=== PATIENT | female | born 1965 | race Caucasian/White ===

== ENCOUNTER 2021-04-11 15:23 | Emergency (ER) | payer BC, SELFPAY ==
[2021-04-11 16:18] VITALS: BP 145/84; PULSE 84; RESP 16; TEMP 36.8; O2SAT 99
--- NOTE | 2021-04-11 17:11 | ED.URI ---
HPI - URI/Sore Throat General Chief Complaint: Upper Respiratory Infection Stated Complaint: fever/zee/congestion Time Seen by Provider: 04/11/21 17:12 Source: patient Mode of arrival: ambulatory Limitations: no limitations History of Present Illness HPI Narrative: Maya Tsai is a 55 yo female with no PMH who comes to express care with congestion and anxiety because her son was at [facility] on Friday and has been diagnosed with Covid. She said few days ago she had a fever of 100.2, otherwise she has been afebrile she has no nausea vomiting diarrhea, no cough Got 2 doses of Pfizer vaccine Related Data Allergies Allergy/AdvReac Type Severity Reaction Status Date / Time Cephalosporins Allergy Unknown Verified 06/02/17 14:41 codeine Allergy Unknown Verified 06/26/16 09:30 erythromycin base Allergy Unknown Verified 03/19/10 10:15 hydrocodone Allergy Unknown Verified 03/19/10 10:12 Penicillins Allergy Unknown Verified 06/26/16 09:30 sulfanilamide Allergy Unknown Verified 08/20/10 14:30 Review of Systems Review of Systems: CONSTITUTIONAL: Denies fever, chills, sweats. EYES: Denies visual changes, redness, discharge. ENT: Denies rhinorrhea, mild congestion, sore throat, otalgia. CARDIOVASCULAR: Denies chest pain, palpitations, edema. Chest heaviness RESPIRATORY: Denies dyspnea, wheezing, cough GASTROINTESTINAL: Denies abdominal pain, nausea, vomiting, diarrhea. GENITOURINARY: Denies dysuria, hematuria, abnormal discharge SKIN: Denies rash or itching. NEUROLOGIC: Denies numbness, or focal weakness. PSYCHIATRIC: Denies anxiety or depression. [facility] Past Medical History Medical History No acute medical problems Family History Family History Mother Hypertension Family history of elevated blood lipids Grandparent Hypertension, Onset Age: 88 Family history of elevated blood lipids, Onset Age: 88 Cerebrovascular accident, Onset Age: 81 Social History Social History Smoking status: Former smoker Second hand tobacco smoke exposure: Yes Smoking end date: 04/07/92 Alcohol intake: never Comments At time of signature, I agree with nursing past medical, surgical, social and family history. There is no relevant family history pertinent to the presenting complaint. Exam Narrative: GENERAL: This is a well-nourished, well-developed patient, in mild distress. HEAD: normocephalic, atraumatic. EYES:Sclera clear/white. Vision is grossly intact. EARS: External ears normal, . Hearing grossly intact. NOSE: External nose normal without nasal discharge, nares without redness, no rhinorrhea. THROAT: Mucous membranes moist, posterior pharynx mild erythema, no edema no exudate NECK: Neck supple, non-tender CARDIOVASCULAR: Regular rate and rhythm without murmurs, gallops, or rubs. RESPIRATORY: Clear to auscultation. Breath sounds equal bilaterally. No wheezes, rales, or rhonchi. GASTROINTESTINAL: Abdomen soft, non-tender, SKIN: warm, intact with no suspicious lesions or rash, good texture and turgor. NEURO: awake, alert, and oriented to person, place and time. There were no obvious focal neurologic abnormalities. Steady gait EXTREMITIES: Normal range of motion. BACK: Nontender without deformity Course Course Emergency Course: Patient comes with 3 days of upper respiratory symptoms and is concerned because she had contacted her son last week who got Covid and she has had pneumonia in the past and so she worries that these symptoms could be the beginning of her getting ill COVID PCR done Some [place]lyn Flonase and Mucinex Level of Care: Express Care Visit Vital Signs Vital signs: Vital Signs Temperature 98.3 F 04/11/21 16:18 Pulse Rate 84 04/11/21 16:18 Respiratory Rate 16 04/11/21 16:18 Blood Pressure 145/84 H 04/11/21 16:18 Pu
[2021-04-12 14:35] LABS: SARS-CoV-2 RNA PCR Positive
== END 2021-04-11 17:30 | disposition home or self-care (01) ==
PROVIDERS: Emergency Provider Nurse Practitioner; PCP Family Medicine
DX: U07.1 COVID-19 (principal); Z87.891 Personal history of nicotine dependence
CPT/HCPCS: 99213; C9803; G0463; U0003; U0005

== ENCOUNTER 2022-07-05 10:07 | Emergency (ER) | payer BC, SELFPAY ==
[2022-07-05 10:19] VITALS: BP 131/89; PULSE 82; RESP 16; TEMP 36.3; O2SAT 96
[2022-07-05 10:21] VITALS: BP 131/89; PULSE 82; RESP 16; TEMP 36.3; O2SAT 96
--- NOTE | 2022-07-05 10:45 | ED.URI ---
HPI - URI/Sore Throat General Chief Complaint: Upper Respiratory Infection Stated Complaint: cough Time Seen by Provider: 07/05/22 10:45 Source: patient, RN notes reviewed and old records reviewed Mode of arrival: ambulatory Limitations: no limitations History of Present Illness HPI Narrative: 56-year-old female presents to the [facility] with nasal congestion that started on Friday, 2 days ago. Cough started yesterday. Reports shortness of breath yesterday which I had shower has helped. Denies any chest pain or shortness of breath currently Patient states that she starts coughing and feels like she is wheezing and having bronchial spasms. Onset (ago): day(s) (2) Related Data Allergies Allergy/AdvReac Type Severity Reaction Status Date / Time Cephalosporins Allergy Unknown Unknown Verified 07/05/22 10:21 codeine Allergy Unknown Unknown Verified 07/05/22 10:21 erythromycin base Allergy Unknown Unknown Verified 07/05/22 10:21 hydrocodone Allergy Unknown Unknown Verified 07/05/22 10:21 Penicillins Allergy Unknown Unknown Verified 07/05/22 10:21 sulfanilamide Allergy Unknown Unknown Verified 07/05/22 10:21 Review of Systems Review of Systems: All systems reviewed & are unremarkable except as noted in HPI and below Constitutional: Constitutional: Reports no additional constitutional complaints Eyes: Eyes: Reports no additional eye complaints ENT: Reports system reviewed and no additional complaints, except as documented Cardiovascular: Cardiovascular: Reports no additional cardiovascular complaints, Denies chest pain and Denies dyspnea Respiratory: Respiratory: Reports as per HPI, Reports chest congestion, Reports cough and Reports dyspnea Gastrointestinal: Gastrointestinal: Reports no additional gastrointestinal complaints, Denies abdominal pain, Denies nausea and Denies vomiting Musculoskeletal: Musculoskeletal: Reports no additional musculoskeletal complaints Integumentary/Breasts: Skin/Breast: Reports system reviewed and no additional complaints, except as docu Neurologic: Reports system reviewed and no additional complaints, except as documented Psychiatric: Psychiatric: Reports no additional psychiatric complaints Allergic/Immunologic: Allergic/Immunologic: Reports no additional allergic/immunologic complaints PMF Past Medical History Medical History No acute medical problems Family History Family History Mother Hypertension Family history of elevated blood lipids Grandparent Hypertension, Onset Age: 88 Family history of elevated blood lipids, Onset Age: 88 Cerebrovascular accident, Onset Age: 81 Social History Social History Smoking status: Former smoker Second hand tobacco smoke exposure: Yes Smoking end date: 04/07/92 Alcohol intake: never Comments At the time of my signature, I reviewed and agree with the nursing past medical, surgical, social, and family history. There is no relevant family history pertinent to the patient complaint. Exam Const: General: cooperative, healthy appearing, comfortable, no acute distress, well developed, alert and well nourished Nutritional Appearance: well nourished and obese Orientation/consciousness: patient oriented x3 Limitations: no limitations HENMT: Head: normal to inspection Ears: hearing grossly normal bilaterally and external ears normal Face/Nose/Sinus: Normal external nose present, Normal nares present, Normal nasal mucous membranes and turbinates present and normal facial exam Face and sinus: normal facial exam Mouth: Yes Normal oral and palatal mucosa present, Yes lip normal and Yes moist mucous membranes Throat: posterior oropharynx normal, uvula midline and postnasal drainage Eyes: General: appearance normal, both eyes and all related structures Alignment and P
== END 2022-07-05 10:56 | disposition home or self-care (01) ==
PROVIDERS: Emergency Provider Nurse Practitioner; PCP Family Medicine
DX: J06.9 Acute upper respiratory infection, unspecified (principal); R09.82 Postnasal drip; R05.9 Cough, unspecified; Z87.891 Personal history of nicotine dependence
CPT/HCPCS: 99213; G0463

== ENCOUNTER 2023-07-19 13:16 | Emergency (ER) | payer BC, SELFPAY ==
[2023-07-19 13:20] VITALS: BP 143/87; PULSE 88; RESP 17; TEMP 36.3; O2SAT 97
--- NOTE | 2023-07-19 13:40 | ED.URI ---
HPI - URI/Sore Throat General Chief Complaint: Upper Respiratory Infection Stated Complaint: SORE THROAT Time Seen by Provider: 07/19/23 13:42 Source: patient and RN notes reviewed Mode of arrival: ambulatory Limitations: no limitations History of Present Illness HPI Narrative: 57-year-old female presents concern for postnasal drainage, sore throat, cough, hoarse voice, ear fullness. Reports she has been taking ibuprofen. Denies fever, body aches, chills, sweats. MD elicited complaint: cough and sore throat Related Data Allergies Allergy/AdvReac Type Severity Reaction Status Date / Time Cephalosporins Allergy Unknown Unknown Verified 07/19/23 13:41 codeine Allergy Unknown Unknown Verified 07/19/23 13:41 erythromycin base Allergy Unknown Unknown Verified 07/19/23 13:41 hydrocodone Allergy Unknown Unknown Verified 07/19/23 13:41 Penicillins Allergy Unknown Unknown Verified 07/19/23 13:41 sulfanilamide Allergy Unknown Unknown Verified 07/19/23 13:41 Review of Systems Review of Systems: CONSTITUTIONAL: Denies malaise, chills, sweats, or fever. EYES: Denies visual changes, redness, or discharge. ENT: Reports rhinorrhea, congestion, otalgia and sore throat. CARDIOVASCULAR: Denies chest pain, palpitations, or edema. RESPIRATORY: Reports cough. Denies dyspnea. GASTROINTESTINAL: Denies abdominal pain, nausea, vomiting, diarrhea SKIN: Denies rash or itching. MUSCULOSKELETAL: Denies myalgia. NEUROLOGIC: Denies headache. All systems reviewed & are unremarkable except as noted in HPI and below PMFSH Past Medical History Medical History No acute medical problems Family History Family History Mother Hypertension Family history of elevated blood lipids Grandparent Hypertension, Onset Age: 88 Family history of elevated blood lipids, Onset Age: 88 Cerebrovascular accident, Onset Age: 81 Social History Social History Smoking status: Former smoker Second hand tobacco smoke exposure: Yes Smoking end date: 04/07/92 Alcohol intake: never Comments At time of signature, agree with nursing past medical, surgical, social and family history. There is no relevant family history pertinent to the presenting complaint Exam Narrative: GENERAL: Well-appearing, well-nourished, and in no acute distress. HEAD: Normocephalic EYES: PERRLA, conjunctivae clear ENT: Nares clear, turbinates edematous and erythematous, clear discharge. Mucous membranes moist. TM pearly shaikh with dull light reflex bilaterally; no tragal tenderness. Oropharynx not erythematous without lesions. Tonsils not enlarged and without exudate, no drooling, no hoarseness, no trismus, uvula midline. NECK: Supple. No lymphadenopathy CHEST: Clear to auscultation, breath sounds equal. No wheezing, rhonchi, rales, or stridor. No respiratory distress, speaks in full sentences. HEART: Regular rate and rhythm. No murmur heard. SKIN: Warm, dry, no rash. NEURO: Alert and oriented x3. PSYCH: Normal mood and affect Course Course Emergency Course: Patient is aware of diagnosis, understands and agrees to treatment plan. Anticipatory guidance given. Patient agrees to follow-up as directed and is aware of reasons to seek care at the emergency department. Portions of this record may have been created with voice recognition software Level of Care: Express Care Visit Vital Signs Vital signs: Reviewed. MDM - URI/Sore Throat MDM Narrative Medical decision making narrative: Differential diagnosis considered: Issa virus, strep pharyngitis, allergic rhinitis, upper respiratory tract infection, sinusitis, rhinosinusitis, nasopharyngitis. viral pharyngitis, otitis media, otitis externa, pneumonia, bronchitis, viral cough syndrome, viral syndrome, and influenza. Exam findings show no acute concerns or ch
== END 2023-07-19 13:52 | disposition home or self-care (01) ==
PROVIDERS: Emergency Provider Nurse Practitioner; PCP Family Medicine
DX: J06.9 Acute upper respiratory infection, unspecified (principal); Z87.891 Personal history of nicotine dependence
CPT/HCPCS: 87081; 87880; 99213; G0463

== ENCOUNTER 2023-09-26 13:03 | Emergency (ER) | payer BC, SELFPAY ==
--- NOTE | ~2023-09-26 | XR_ITS ---
EXAMINATION: XR foot RT min 3V DATE: 09/26/2023 13:39 INDICATION: Right foot injury. TECHNIQUE: 5 views of right foot were obtained. COMPARISON: None. FINDINGS: Bone alignment is normal. There is a nondisplaced avulsion fracture of medial base of fourt h proximal phalanx. There is mild osteoarthritis of first metatarsophalangeal joint and some of the i nterphalangeal joints and talonavicular joint. There is an enthesophyte at plantar aspect of calcanea l tuberosity.. IMPRESSION: 1. Nondisplaced avulsion fracture of medial base of fourth proximal phalanx. Reviewed, dictated and finalized at location A.
--- NOTE | 2023-09-26 13:15 | ED.LOWEXIN ---
HPI - Extremity Injury (Lower) General Chief Complaint: Extremity Injury, Lower Stated Complaint: rt foot injury Time Seen by Provider: 09/26/23 13:30 Source: patient, RN notes reviewed and old records reviewed Mode of arrival: ambulatory Limitations: no limitations History of Present Illness HPI Narrative: 57-year-old female presents to the [facility] with complaints of right foot pain and swelling to the dorsal distal aspect. Positive pedal pulse. Capillary refill under 2 seconds Related Data Allergies Allergy/AdvReac Type Severity Reaction Status Date / Time Cephalosporins Allergy Unknown Unknown Verified 09/26/23 13:14 codeine Allergy Unknown Unknown Verified 09/26/23 13:14 erythromycin base Allergy Unknown Unknown Verified 09/26/23 13:14 hydrocodone Allergy Unknown Unknown Verified 09/26/23 13:14 Penicillins Allergy Unknown Unknown Verified 09/26/23 13:14 sulfanilamide Allergy Unknown Unknown Verified 09/26/23 13:14 Review of Systems Review of Systems: All systems reviewed & are unremarkable except as noted in HPI and below Constitutional: Constitutional: Reports no additional constitutional complaints Eyes: Eyes: Reports no additional eye complaints ENT: Reports system reviewed and no additional complaints, except as documented Cardiovascular: Cardiovascular: Reports no additional cardiovascular complaints, Denies chest pain and Denies dyspnea Respiratory: Respiratory: Reports no additional respiratory complaints, Denies chest congestion, Denies cough and Denies dyspnea Gastrointestinal: Gastrointestinal: Reports no additional gastrointestinal complaints, Denies abdominal pain, Denies nausea and Denies vomiting Musculoskeletal: Musculoskeletal: Reports as per HPI Integumentary/Breasts: Skin/Breast: Reports system reviewed and no additional complaints, except as docu Neurologic: Reports system reviewed and no additional complaints, except as documented Psychiatric: Psychiatric: Reports no additional psychiatric complaints Allergic/Immunologic: Allergic/Immunologic: Reports no additional allergic/immunologic complaints [facility] Past Medical History Medical History No acute medical problems Family History Family History Mother Hypertension Family history of elevated blood lipids Grandparent Hypertension, Onset Age: 88 Family history of elevated blood lipids, Onset Age: 88 Cerebrovascular accident, Onset Age: 81 Social History Social History Smoking status: Former smoker Second hand tobacco smoke exposure: Yes Smoking end date: 04/07/92 Alcohol intake: never Comments At the time of my signature, I reviewed and agree with the nursing past medical, surgical, social, and family history. There is no relevant family history pertinent to the patient complaint. Exam Const: General: cooperative, healthy appearing, comfortable, no acute distress, well developed, alert and well nourished Nutritional Appearance: well nourished and obese Orientation/consciousness: patient oriented x3 Limitations: no limitations HENMT: Head: normal to inspection Ears: hearing grossly normal bilaterally and external ears normal Face/Nose/Sinus: Normal external nose present, Normal nares present, Normal nasal mucous membranes and turbinates present, normal facial exam and face symmetric Face and sinus: normal facial exam and face symmetric Eyes: General: appearance normal, both eyes and all related structures Alignment and Position: alignment normal Periorbital: periorbital findings normal Pupils: Equal, round and reactive pupils present EOM: EOMs intact bilaterally Neck: Neck: normal visual inspection, full ROM, no lymphadenopathy and no meningeal signs Chest: Chest palpation & inspection: normal inspection of the chest Resp: Effort & Inspe
[2023-09-26 13:21] VITALS: BP 134/94; PULSE 93; RESP 20; TEMP 36.8; O2SAT 98
== END 2023-09-26 14:10 | disposition home or self-care (01) ==
PROVIDERS: Emergency Provider Nurse Practitioner; PCP Family Medicine
DX: S92.514A Nondisplaced fracture of proximal phalanx of right lesser toe(s), initial encounter for closed fracture (principal); X58.XXXA Exposure to other specified factors, initial encounter; L03.115 Cellulitis of right lower limb; Z87.891 Personal history of nicotine dependence
CPT/HCPCS: 73630; 99214; G0463

== ENCOUNTER 2023-11-12 08:35 | Outpatient (CLI) | payer BC, SELFPAY ==
--- NOTE | ~2023-11-12 | MR_ITS ---
MRI of the right foot Clinical history swelling plantar fascial fibromatosis TECHNIQUE: Axial proton-density and proton-density fat-sat images, sagittal T1-weighted and STIR imag es, and coronal T1-weighted and proton-density fat-sat images were performed. FINDINGS: Syndesmotic ligaments of the ankle are intact. Anterior and posterior catheter evidence, an d calcaneofibular ligament are intact. Deltoid ligament is intact. Lisfranc ligament is intact. Medial flexor tendons, peroneus longus tendon, anterior extensor tendons, and Achilles tendon are int act. There is a longitudinal split tear focally of the peroneus brevis tendon just at the level of th e lateral malleolar tip. There is no osteochondral lesion of the talar dome. There is focal marrow edema at the lateral aspect of the cuboid, suggestive of bone contusion. No other bone marrow edema identified. No fracture seen . Joint spaces are relatively well preserved throughout the foot. No joint effusion identified. Plantar fascia is intact, without evidence of mass lesion. There is dorsal subcutaneous soft tissue e caren of the foot. There is probable tenosynovitis of the distal peroneus longus tendon sheath. IMPRESSION: No evidence of plantar fibromatosis or other mass lesion. Tenosynovitis of the distal peroneus longus tendon sheath. Longitudinal split tear of the paranasal brevis tendon at the level of the lateral malleolar tip. Reviewed, dictated and finalized at [facility]. IMPRESSION: No evidence of plantar fibromatosis or other mass lesion. Tenosynovitis of the distal peroneus longus tendon sheath. Longitudinal split tear of the paranasal brevis tendon at the level of the late ral malleolar tip.
== END 2023-11-12 08:36 ==
PROVIDERS: PCP Family Medicine; Visit Provider Podiatrist Foot & Ankle Surgery
DX: M66.371 Spontaneous rupture of flexor tendons, right ankle and foot (principal); M65.871 Other synovitis and tenosynovitis, right ankle and foot; S86.311A Strain of muscle(s) and tendon(s) of peroneal muscle group at lower leg level, right leg, initial encounter; X58.XXXA Exposure to other specified factors, initial encounter
CPT/HCPCS: 73718